=== PATIENT | female | born 1945 | race Caucasian/White ===

== ENCOUNTER → 2017-03-16 | Outpatient (CLI) | payer OTHER, MEDICAID | LOC: FIMAGING 10:04 | PROVIDERS: ATTEND Family Medicine | DX: Z12.31 Encounter for screening mammogram for malignant neoplasm of breast (principal); Z13.820 Encounter for screening for osteoporosis; Z78.0 Asymptomatic menopausal state | CPT/HCPCS: G0202 ==

== ENCOUNTER 2017-11-30 13:00 | Observation (INO) | payer OTHER, MEDICAID ==
--- NOTE | 2017-11-30 13:20 | CPEKG ---
Heart Rate: 68 RR Interval: 882 P-R Interval: 140 QRSD Interval: 98 QT Interval: 420 QTC Interval: 447 P [place]: 50 QRS [place]: 34 T Wave [place]: 35 EKG Severity - NORMAL ECG - EKG Impression: SINUS RHYTHM Electronically Signed By: Bethany Stearns 30-Nov-2017 15:14:20
[2017-11-30 13:44] LABS: PLATELET COUNT 244 10^3/uL (150-400)
--- NOTE | 2017-11-30 13:55 | EDPHY ---
H & P Stated Complaint: cough, body aches Time Seen by Provider: 11/30/17 13:18 HPI/ROS: CHIEF COMPLAINT: Chest pain, shortness of breath HISTORY OF PRESENT ILLNESS: 72-year-old female with CAD and hypertension presents with chest pain and shortness of breath. Onset of exertional shortness of breath and chest heaviness 2 days ago. Chest pain and shortness of breath occur with minimal activity around her house. The cp is described as heaviness and resolves with rest. Onset of a productive cough today. No fever or sore throat. She took an aspirin today. Under excessive stress recently. No prior h/o chest pain. REVIEW OF SYSTEMS: complete 10 point ROS negative except at noted in the HPI - Personal History Current Tetanus/Diphtheria Vaccine: No Current Tetanus Diphtheria and Acellular Pertussis (TDAP): No - Medical/Surgical History Hx Asthma: Yes Hx Chronic Respiratory Disease: No Hx Diabetes: No Hx Cardiac Disease: Yes Hx Renal Disease: No Hx Cirrhosis: No Hx Alcoholism: Yes Hx HIV/AIDS: No Hx Splenectomy or Spleen Trauma: No Other PMH: htn,hypothyroid,gerd,fibromyalgia - Social History Smoking Status: Former smoker - Physical Exam Exam: General Appearance: Alert, pleasant, anxious Eyes: Pupils equal and round, no conjunctival pallor or injection ENT, Mouth: Mucous membranes moist Neck: Normal inspection Respiratory: Lungs are clear to auscultation Cardiovascular: Regular rate and rhythm Gastrointestinal: Abdomen is soft and nontender Neurological: A&O, nonfocal, normal gait Skin: Warm and dry, no rash Extremities: Nontender, trace pedal edema Psychiatric: Anxious Constitutional: Initial Vital Signs Temperature (C) 36.6 C 11/30/17 13:09 Heart Rate 69 11/30/17 13:09 Respiratory Rate 16 11/30/17 13:09 Blood Pressure 172/87 H 11/30/17 13:09 O2 Sat (%) 95 11/30/17 13:09 O2 Delivery Mode Room Air Allergies/Adverse Reactions: codeine [Codeine] Allergy (Verified 11/30/17 13:06) RASH,AGITATION Home Medications: Medication Instructions Recorded Acetaminophen [Acetaminophen 8 1,300 mg PO BID@07,17 11/30/17 Hour] Aspirin EC [Aspirin EC 81 mg (*)] 81 mg PO DAILY 11/30/17 Baclofen [Baclofen 10 mg (*)] 10 mg PO BID@07,11/30/17 Herbals/Supplements -Info Only 1 tab PO DAILY 11/30/17 Hydrochlorothiazide [HCTZ (*)] 25 mg PO DAILY 11/30/17 Ibuprofen [Motrin (*)] 400 mg PO BID@, PRN 11/30/17 Levothyroxine [Synthroid 100 mcg 100 mcg PO DAILY06 11/30/17 (*)] Multivitamins [Multivitamin (*)] 1 tab PO DAILY 11/30/17 Ranitidine HCl 150 mg PO BID@,11/30/17 Medical Decision Making - Diagnostics EKG Interpretation: EKG interpreted by me reveals normal sinus rhythm, rate 68, no ST or T segment changes. Imaging Results: Chest x-ray independently reviewed by me reveals no acute disease. Imaging: I viewed and interpreted images myself ED Course/Re-evaluation: This patient presents with exertional chest pain and shortness of breath, concerning for acute coronary syndrome. Stat EKG reveals no evidence of ischemia or dysrhythmia. She also c/o a productive cough. She is well appearing and chest x-ray reveals no evidence of pneumonia. Initial troponin WNL. Given h/o CAD and new onset c/p and SOB, will admit for further evaluation. Stable throughout ED stay. Hospitalist service consulted for admission. Differential Diagnosis: Differential diagnosis includes though it is not limited to pneumonia, pneumothorax, pulmonary embolism, aortic dissection, pericarditis, acute coronary syndrome. - Data Points Laboratory Results: Laboratory Results 11/30/17 13:35 11/30/17 13:35 Medications Given: Discontinued Medications Acetaminophen (Tylenol) 1,300 mg PO BID@0700,1700 [facility] Stop: 05/29/18 17:44 Last Admin: 12/01/17 06:32 Dose: 1,300 mg Aspirin Buffered (Aspirin Ec) 81 mg PO DAILY [facility] Stop: 05/30/18 08:59 Last Admin: 12/01/17 08:11 Dose: 81 mg Baclofen (Baclofen) 10 mg PO BID@ [facility] Stop: 05/29/18 16:59 Last Admin: 12/01/17 06:32 Dose: 10 mg Famotidine (Pepcid) 20 mg PO BID@0700,1700 [facility] Stop: 05/29/18 17:44 Last Admin: 12/01/17 06:32 Dose: 20 mg Hydrochlorothiazide (Hydrochlorothiazide) 25 mg PO DAILY [facility] Stop: 05/30/18 08:59 Last Admin: 12/01/17 08:11 Dose: 25 mg Ibuprofen (Motrin) 400 mg PO BID@07,17 PRN PRN Reason: Pain, Mild Stop: 05/29/18 16:59 Last Admin: 12/01/17 11:33 Dose: 400 mg Levothyroxine S[facility]throid) [facility] Stop: 05/30/18 05:59 Last Admin: 12/01/17 06:31 Dose: 100 mcg Multivitamins (Tab-A-Cyndy) 1 each PO DAILY [facility] Stop: 05/30/18 08:59 Last Admin: 12/01/17 08:11 Dose: 1 each Nitroglycerin (Nitro-Bid 2%) 1 inch TP [facility] ONE Stop: 11/30/17 14:49 Last Admin: 11/30/17 14:58 Dose: 1 inch Departure - Departure Disposition: [facility] Inpatient Acute Clinical Impression: Chest pain Qualifiers: Chest pain type: precordial pain Qualified Code(s): R07.2 - Precordial pain Condition: Fair
[2017-11-30] MEDS ORDERED: NITROGLYCERIN 2% 1 GM PACKET TP ONE (14:48)
[2017-11-30] MEDS ORDERED: ACETAMINOPHEN 325 MG TAB PO PRN (15:16)
[2017-11-30] MEDS ORDERED: ONDANSETRON 4 MG/2 ML VIAL IVP PRN (15:16)
[2017-11-30] MEDS ORDERED: ONDANSETRON DISINTEGRATING 4 MG TAB PO PRN (15:16)
[2017-11-30 15:38] LABS: INR 0.94 (0.83-1.16); PROTIME(PATIENT) 12.8 SEC (12.0-15.0)
--- NOTE | 2017-11-30 15:50 | GHP ---
[f rep st] HISTORY AND PHYSICAL DATE OF ADMISSION: 11/30/2017 HISTORY OF PRESENT ILLNESS: The patient is a pleasant 72-year-old female with a history of nonobstru ctive coronary disease who presented to the hospital with a couple days of shortness of breath and ch est pain. She describes the chest pain as central in her chest, heavy, aching, perhaps worse with ex ertion. She has had a dry cough and now has been coughing up some clear sputum. She has not had low er extremity edema. She has not had tachycardia. She has not had PND or orthopnea. It is not clear that it is exertional in nature. She had a coronary angiogram about 10 years ago showing nonobstructive coronary disease. She has sub sequently quit smoking. She notes that she has had a mice infestation in her house and has killed about 40 mice and has been vacuuming up mice droppings, so she expresses some concern over hantavirus infection. She has not carlin d fever or chills. She has had the aforementioned clear sputum. She is not hypoxemic. REVIEW OF SYSTEMS: Complete 10-point review of systems conducted and negative, except as noted in th e HPI. PAST MEDICAL HISTORY: 1. Nonobstructive coronary disease. 2. COPD by chest x-ray. 3. Hypertension. 4. Hypothyroidism. 5. Reflux. ALLERGIES: Codeine. MEDICATIONS: Baclofen, CBD oil, hydrochlorothiazide, levothyroxine, ranitidine. SOCIAL HISTORY: Quit smoking a while ago. Does not drink much alcohol. Lives in [place] with her grandson. PHYSICAL EXAMINATION: VITAL SIGNS: Temp 36.6, blood pressure 172/87, now 140/90, pulse 69, breathin g 16 times a minute, 95% on room air. GENERAL: No acute distress, speaking in full sentences, conver mariam. HEENT: Sclerae anicteric. Oropharynx clear. Mucous membranes are moist. NECK: Supple, wit hout lymphadenopathy or JVD. LUNGS: Clear to auscultation bilaterally. HEART: S1, S2, without mur mur. ABDOMEN: Soft, nontender, nondistended. LOWER EXTREMITIES: No edema. Calves are nontender. SKIN: Without rash. NEUROLOGIC: Exam is nonfocal. LABORATORY DATA: Chem-7 is normal. Troponin less than 0.012. BNP is 50. She is influenza negative . CBC: White count 5.5, hematocrit 42. Platelets are 244,000. Chest x-ray interpreted by me shows no acute cardiopulmonary disease. There is evidence of hyperinflation consistent with COPD. EKG int erpreted by me shows sinus at 68 with normal axis and intervals and no ST or T-wave changes. This is actually a normal EKG. I discussed the case with Dr. Key Stearns. ASSESSMENT/PLAN: This 72-year-old female presents with chest pain. 1. Chest pain. There is a broad differential on this. Nothing is really jumping out based on the a vailable clinical data. She has a nonischemic EKG, negative troponin, and does not particularly soun d anginal in nature. Her nonobstructive coronary disease is noted. To that end, we will cycle tropo nins and order a treadmill stress test without imaging in the morning. I have considered pulmonary e mbolism, but given her absence of hypoxia or tachycardia, and her relative level of activity, we can forego management at this time. Will send a respiratory virus panel. 2. The patient does not have hypoxemia or an infiltrate. This concern of hantavirus is potentially there. Coagulopathy is often an early sign, so I have sent some coags, and I will ask Infectious Dis ease to drop by and see her. 3. Hypertension. Continue her medicines. 4. Hypothyroidism. Continue her medicines. 5. Prophylaxis. Pharmacologic prophylaxis indicated if in the hospital longer than 24 hours. For n ow, will go ahead and start with SCDs. DISPOSITION: Observation status. /[id number]/MODL
[2017-11-30] MEDS ORDERED: IBUPROFEN 200 MG TAB PO PRN (17:00)
[2017-11-30] MEDS ORDERED: ACETAMINOPHEN 1300 MG PO SCH (17:00)
[2017-11-30] MEDS ORDERED: NON-FORMULARY NEW DRUG (Ranitidine Hcl [Ranitidine Hcl] 150 MG) PO SCH (17:00)
[2017-11-30] MEDS: ACETAMINOPHEN 325 MG TAB PO SCH (17:44)
[2017-11-30] MEDS: FAMOTIDINE 20 MG TAB PO SCH (17:45)
[2017-11-30] MEDS: BACLOFEN 10 MG TAB PO SCH (17:45)
[2017-12-01 04:21] LABS: PLATELET COUNT 210 10^3/uL (150-400)
[2017-12-01 04:30] LABS: INR 1.01 (0.83-1.16); PROTIME(PATIENT) 13.5 SEC (12.0-15.0)
[2017-12-01] MEDS ORDERED: LEVOTHYROXINE 100 MCG TAB PO SCH (06:00)
[2017-12-01] MEDS: FAMOTIDINE 20 MG TAB PO SCH (06:32)
[2017-12-01] MEDS: BACLOFEN 10 MG TAB PO SCH (06:32)
[2017-12-01] MEDS: ACETAMINOPHEN 325 MG TAB PO SCH (06:32)
[2017-12-01] MEDS ORDERED: Herbals/Supplements -Info Only PO SCH (09:00)
[2017-12-01] MEDS ORDERED: ASPIRIN EC 81 MG TAB PO SCH (09:00)
[2017-12-01] MEDS ORDERED: MULTIVITAMINS 1 EACH TAB PO SCH (09:00)
[2017-12-01] MEDS ORDERED: HYDROCHLOROTHIAZIDE 25 MG TAB PO SCH (09:00)
[2017-12-01] MEDS ORDERED: REGADENOSON 0.4 MG/5 ML SYR IVP ONE (09:39)
--- NOTE | 2017-12-01 11:34 | CPR ---
[f rep st] NONINVASIVE CARDIAC PROCEDURE REPORT DATE OF PROCEDURE: 12/01/2017 PROCEDURE PERFORMED: Lexiscan nuclear stress test. ORDERING PHYSICIAN: Hospitalist. REASON FOR TEST: Chest discomfort. RESTING DATA: Resting EKG shows a regular sinus rhythm with a rate of 63. There are no arrhythmias or ischemic changes noted. Resting blood pressure is 120/82, oxygen saturation 95%, heart rate 63. STRESS DATA: Lexiscan was injected rapidly, followed by saline flush. Cardiolite was then injected, followed by saline flush. She did experience some shortness of breath, flushing, and mild chest dis comfort after the injection. Peak blood pressure 130/80, peak heart rate 82, oxygen saturation 97%. There were no EKG changes during the injection stress portion. RECOVERY: She did spontaneously recover. Resting heart rate is 70, resting blood pressure 124/82, o xygen saturation 96%. Her symptoms did subside with caffeine. At this time, she currently is stable for nuclear imaging. /[id number]/MODL
[2017-12-01 13:05] VITALS: BP 133/87
--- NOTE | 2017-12-01 14:09 | GDS ---
[f rep st] DISCHARGE SUMMARY ALL DIAGNOSES: 1. Chest pain. 2. Hypertension. 3. Hypothyroidism. 4. Rodent dropping exposure. HOSPITAL COURSE: This 72-year-old female presented with cough, as well as chest pain. She underwent a nuclear stress test, which was negative for ischemia. Hyperdynamic EF was noted with possible LVH . There is no ischemia or infarct noted. She had no hypoxia or tachycardia to suggest PE. I think overall this is a non life-threatening cause of chest pain. Could consider an echocardiogram as an o utpatient. She is concerned about hantavirus as she has significant mice exposure. Discussed that usually start s with a fever and infiltrate, as well as coagulopathy. She has none of these. Recommend that she w ear an N95 mask if she continues to clean up mouse droppings. I have also recommended that she retur n to the emergency department immediately if she develops a fever or any worsening of her respiratory symptoms. She had a negative viral PCR. She is discharged in stable condition with no changes in h er medications. /[id number]/MODL
--- NOTE | 2017-12-01 15:24 | ASMTCASEMG ---
Living Arrangements What is your living Answers: Alone arrangement? Who do you live with? Type Of Residence What kind of residence do Answers: House you live in? Discharge Plan Comments Coordination Status Comments Notes: Pt is a 72 y/o female admitted for chest pain. Pt will most likely d/c independent if her stress test is negative. No therapies ordered at this time. CM available for changes. Plan: Independent Date Signed: 12/01/2017 03:24 PM Electronically Signed By:CORBIN Velazco
== END 2017-12-01 15:55 | disposition home or self-care (01) ==
LOC: F2W 16:57
PROVIDERS: ADMIT Internal Medicine; ATTEND Student in an Organized Health Care Education/Training Program
DX: R07.9 Chest pain, unspecified (principal); R06.02 Shortness of breath; J44.9 Chronic obstructive pulmonary disease, unspecified; I10 Essential (primary) hypertension; E03.9 Hypothyroidism, unspecified; I25.10 Atherosclerotic heart disease of native coronary artery without angina pectoris; K21.9 Gastro-esophageal reflux disease without esophagitis; M79.7 Fibromyalgia; Z87.891 Personal history of nicotine dependence; Z20.89 Contact with and (suspected) exposure to other communicable diseases
CPT/HCPCS: 71046; 78452; 93005; 93017; A9500; G0378; J2785